=== PATIENT | female | born 1975 | race Two or more races ===

== ENCOUNTER 2017-11-06 08:33 | Emergency (ER) | payer MEDICAID ==
[~2017-11-06] VITALS: Ht 154.9 cm; Wt 59.0 kg
[~2017-11-06 08:33] MED LIST: PREN1TAB59 PO
[2017-11-06 08:40] VITALS: BP 119/72
== END 2017-11-06 08:51 | disposition home or self-care (01) ==
LOC: ER 08:34
DX: M54.12 Radiculopathy, cervical region (principal); Z79.899 Other long term (current) drug therapy
CPT/HCPCS: 99282; A4606; Z7610

== ENCOUNTER 2019-11-28 12:55 | Emergency (ER) | payer SELFPAY ==
[~2019-11-28] VITALS: Ht 157.5 cm; Wt 72.6 kg
[2019-11-28 13:17] VITALS: BP 103/65
[2019-11-28] MEDS ORDERED: IBUPROFEN 400 MG TABLET PO ONE (15:00)
[2019-11-28] MEDS ORDERED: IBUPROFEN 400 MG TABLET ONE (15:06)
== END 2019-11-28 16:22 | disposition home or self-care (01) ==
LOC: ER 12:58
DX: M79.671 Pain in right foot (principal)
CPT/HCPCS: 73590-TC; 73630-TC; 93971-TC

== ENCOUNTER 2021-06-02 16:53 | Emergency (ER) | payer MEDICAID, OTHER ==
[~2021-06-02] VITALS: Ht 152.4 cm; Wt 72.6 kg
[2021-06-02] MEDS ORDERED: KETOROLAC TROMETHAMINE INJ 30 MG/ML VIAL IM ONE (18:00)
[2021-06-02] MEDS ORDERED: KETOROLAC TROMETHAMINE INJ 30 MG/ML VIAL ONE (18:04)
[2021-06-02] MEDS ORDERED: IBUP-1953 PO (18:09)
[2021-06-02] MEDS ORDERED: CYCL5TAB PO (18:10)
--- NOTE | 2021-06-02 18:18 | NUR ---
Patient discharged to home in stable condition. Written and verbal after care instructions given. Patient verbalizes understanding of instruction.
[2021-06-02 18:21] VITALS: BP 112/73
== END 2021-06-02 18:25 | disposition home or self-care (01) ==
LOC: ER 16:55
DX: S93.402A Sprain of unspecified ligament of left ankle, initial encounter (principal); M19.90 Unspecified osteoarthritis, unspecified site; Z79.1 Long term (current) use of non-steroidal anti-inflammatories (NSAID); Z79.891 Long term (current) use of opiate analgesic; Z79.899 Other long term (current) drug therapy; W10.9XXA Fall (on) (from) unspecified stairs and steps, initial encounter; Y93.89 Activity, other specified; Y92.009 Unspecified place in unspecified non-institutional (private) residence as the place of occurrence of the external cause; Y99.8 Other external cause status
CPT/HCPCS: 73610; 73630; 96372; 99284; J1885

== ENCOUNTER 2021-10-07 11:15 | Emergency (ER) | payer OTHER ==
[~2021-10-07] VITALS: Ht 162.6 cm; Wt 72.6 kg
[~2021-10-07 11:15] MED LIST changes: +CYCL5TAB PO; +IBUP-1953 PO
--- NOTE | 2021-10-07 11:40 | NUR ---
reclorena pt 45 yrs female c/o pain on lt leg no HX TRAMA abdle to wigle here lt toes
[2021-10-07] MEDS ORDERED: KETOROLAC TROMETHAMINE INJ 30 MG/ML VIAL IM ONE (13:00)
[2021-10-07] MEDS ORDERED: CYCL5TAB PO (13:17)
[2021-10-07] MEDS ORDERED: METH4TAB17 PO (13:17)
[2021-10-07] MEDS ORDERED: IBUP-1953 PO (13:17)
[2021-10-07] MEDS ORDERED: KETOROLAC TROMETHAMINE 15 MG/ML VIAL ONE (13:33)
[2021-10-07 13:54] VITALS: BP 116/72
--- NOTE | 2021-10-07 13:54 | NUR ---
Patient discharged to home in stable condition. Written and verbal after care instructions given. Patient verbalizes understanding of instruction.
== END 2021-10-07 13:55 | disposition home or self-care (01) ==
LOC: ER 11:16
DX: M54.42 Lumbago with sciatica, left side (principal); Z79.899 Other long term (current) drug therapy
CPT/HCPCS: 96372; 99283; J1885

== ENCOUNTER 2023-06-13 09:45 | Emergency (ER) | payer OTHER ==
[~2023-06-13] VITALS: Ht 162.6 cm; Wt 74.8 kg
[~2023-06-13 09:45] MED LIST changes: +METH4TAB17 PO
[2023-06-13] MEDS ORDERED: LIDOCAINE VISCOUS 2% UD 15 ML UDC ONE (10:38)
[2023-06-13] MEDS ORDERED: KETOROLAC TROMETHAMINE 15 MG/ML VIAL ONE (10:38)
[2023-06-13] MEDS ORDERED: MAG HYDROX/AL HYDROX/SIMETH 30 ML UDC ONE (10:38)
[2023-06-13] MEDS ORDERED: FAMOTIDINE (20 MG) 20 MG TABLET ONE (10:39)
[2023-06-13 10:52] LABS: APPEARANCE,URINE SLIGHTLY CLOUDY (CLEAR); BILIRUBIN,URINE NEGATIVE (NEGATIVE); BLOOD, URINE 3+ Ery/uL (NEGATIVE); COLOR,URINE ORANGE (YELLOW); KETONES,URINE NEGATIVE (NEGATIVE); LEUKOCYTE ESTERASE ,URINE 1+ (NEGATIVE); NITRITE, URINE NEGATIVE (NEGATIVE); PH,URINE 7.5 (5.0-8.0); PROTEIN,URINE TRACE mg/dl (NEGATIVE); UGLUCOSE NEGATIVE (NEGATIVE); UROBILINOGEN,URINE 0.2 EU/dL (0.2)
[2023-06-13 10:52] LABS: CREATININE 0.5 mg/dL (0.6-1.3); POTASSIUM 3.2 mmol/L (3.5-5.1)
[2023-06-13 10:58] LABS: ALBUMIN 3.5 g/dL (3.4-5.0); BILIRUBIN,DIRECT 0.1 mg/dL (0.0-0.2); BILIRUBIN,TOTAL 0.6 mg/dL (0.2-1.0); TOTAL PROTEIN, SERUM 7.8 g/dL (6.4-8.2)
[2023-06-13 10:59] LABS: PREGNANCY TEST URINE QUAL NEGATIVE (NEGATIVE)
[2023-06-13] MEDS: IV NS 0.9% 1,000 ML BAG IV ONE (11:03)
[2023-06-13] MEDS: MAG HYDROX/AL HYDROX/SIMETH 30 ML UDC PO ONE (11:03)
[2023-06-13] MEDS: FAMOTIDINE/PF INJ 20 MG/2 ML VIAL IV ONE (11:03)
[2023-06-13] MEDS: LIDOCAINE VISCOUS 2% UD 15 ML UDC MM ONE (11:03)
[2023-06-13] MEDS: KETOROLAC TROMETHAMINE 15 MG/ML VIAL IV ONE (11:05)
[2023-06-13 11:07] LABS: ADD URINE CULTURE YES; BACTERIA,URINE None seen /HPF (None Seen); SQUAMOUS EPITHELIAL CELL,UR Few /HPF (None Seen)
[2023-06-13 11:07] LABS: BASOPHILS % (AUTO) 0.5 % (0.0-2.0); EOSINOPHILS # (AUTO) 0.2 K/uL (0.0-0.7); EOSINOPHILS % (AUTO) 2.2 % (0.0-6.0); HEMATOCRIT 41 % (33-45); HEMOGLOBIN 13.8 g/dL (11.5-14.8); LYMPHOCYTES # (AUTO) 2.4 K/uL (0.8-4.8); LYMPHOCYTES % (AUTO) 24.6 % (20.0-44.0); MEAN CORPUSCULAR HEMOGLOBIN 34 PG (26.0-33.0); MEAN CORPUSCULAR HGB CONC 34 g/dl (31.0-36.0); MEAN CORPUSCULAR VOLUME 99 fL (82-100); MONOCYTES # (AUTO) 0.7 K/uL (0.1-1.30); MONOCYTES % (AUTO) 7.6 % (2.0-12.0); NEUTROPHILS # (AUTO) 6.2 K/uL (1.8-8.9); NEUTROPHILS % (AUTO) 65.1 % (43.0-81.0); PLATELET COUNT (AUTO) 318 K/uL (150-450); RED BLOOD CELL COUNT(AUTO) 4.12 MIL/uL (4.0-5.2); RED CELL DISTRIBUTION WIDTH 13.5 % (11.5-15.0); WHITE BLOOD COUNT (AUTO) 9.6 K/uL (4.3-11.0)
[2023-06-13 11:14] LABS: AMPHETAMINE, URINE NEGATIVE (NEGATIVE); BARBITURATE, URINE NEGATIVE (NEGATIVE); BENZODIAZEPINE, URINE NEGATIVE (NEGATIVE); CANNABINOID, URINE NEGATIVE (NEGATIVE); COCCAINE, URINE NEGATIVE (NEGATIVE); OPIATE, URINE NEGATIVE (NEGATIVE); PHENCYCLIDINE SCREEN,URINE NEGATIVE (NEGATIVE)
[2023-06-13] MEDS ORDERED: OMEP20TA20 PO (12:51)
[2023-06-13] MEDS ORDERED: ONDA4TAB5 PO (12:51)
[2023-06-13] MEDS ORDERED: NITR100C6 PO (12:51)
[2023-06-13] MEDS ORDERED: IBUP-1955 PO (12:51)
[2023-06-13 14:01] VITALS: BP 145/71; TEMP 98.3; O2SAT 97
== END 2023-06-13 13:59 | disposition home or self-care (01) ==
LOC: ER 09:49
DX: N39.0 Urinary tract infection, site not specified (principal); R10.13 Epigastric pain; R10.30 Lower abdominal pain, unspecified; R10.2 Pelvic and perineal pain; Z79.899 Other long term (current) drug therapy
CPT/HCPCS: 99285; 96374; 96361; 96375; 93005; 71045; 76705; 85025; 80048; 83690; 80076; 84703; 81001; 36415; 84484; 80320; 80307; J7030; J1885; G0480